=== PATIENT | male | born 1975 | race African-American/Black ===

== ENCOUNTER 2019-04-09 11:58 | Emergency (ER) | payer OTHER ==
[~2019-04-09] VITALS: Ht 175.3 cm; Wt 88.9 kg
[2019-04-09 12:06] VITALS: BP 131/101
--- NOTE | 2019-04-09 12:23 | NUR ---
DR. HUI EVALUATING PT AT BEDSIDE.
--- NOTE | 2019-04-09 12:32 | NUR ---
43/M C/O LT FACIAL NUMBNESS X 1 WK, BLURRY VISION X 1 WK, UNSTEADY GAIT X 1 WK, SLURRED SPEECH X 1 WK. STATES FULL BODY WEAKNESS, NO UNILATERAL WEAKNESS. DENIES N/V/D/FEVER. REPORTS WAS TOLD HE MAY HAVE GLAUCOMA. FULL CLEAR SPEECH. NO ARM DRIFT. HAND AUTOMATIC PATTERN EDGER EQUAL STRONG BILATERALLY. EVEN STEADY GAIT. HX: GLAUCOMA, HTN Addendum: 04/09/19 at 1310 by MILLICENT BLURRY VISION X 1 MONTH (NOT 1 WK)
--- NOTE | 2019-04-09 12:41 | NUR ---
URINE SAMPLE CUP GIVEN TO PT; EXPLAINED THE PROCESS FOR OBTAINING URINE SAMPLE; PT VERBALIZED UNDERSTANDING.
--- NOTE | 2019-04-09 12:54 | NUR ---
DELIVERY ROOM CLERK AT BEDSIDE.
--- NOTE | 2019-04-09 12:56 | NUR ---
PT TO CT SCAN VIA W/C
[2019-04-09 13:06] LABS: BASOPHILS # (AUTO) 0.1 K/uL (0.00-0.22); BASOPHILS % (AUTO) 1.3 % (0.0-2.0); EOSINOPHILS # (AUTO) 0.1 K/uL (0-0.4); EOSINOPHILS % (AUTO) 2.1 % (0.0-4.0); HEMATOCRIT 44.7 % (36-52); HEMOGLOBIN 14.8 g/dL (12.0-18.0); LYMPHOCYTES # (AUTO) 1.9 K/uL (2.0-11.5); LYMPHOCYTES % (AUTO) 36.1 % (20.5-51.1); MEAN CORPUSCULAR HEMOGLOBIN 29 pg (27-31); MEAN CORPUSCULAR HGB CONC 33 g/dL (33-37); MONOCYTES # (AUTO) 0.5 K/uL (0.8-1.0); MONOCYTES % (AUTO) 9.6 % (1.7-9.3); NEUTROPHILS # (AUTO) 2.6 K/uL (1.8-7.7); NEUTROPHILS % (AUTO) 50.9 % (42.2-75.2); PLATELET COUNT (AUTO) 305 K/uL (140-450); RED BLOOD CELL COUNT(AUTO) 5.14 MIL/uL (4.20-6.10); RED CELL DISTRIBUTION WIDTH 13.4 % (11.6-13.7); WHITE BLOOD COUNT (AUTO) 5.2 K/uL (4.8-10.8)
[2019-04-09 13:16] LABS: ALBUMIN 3.8 g/dL (3.4-5.0); ANION GAP 11.8 (8-16); ASPARTATE AMINOTRANSFERASE 11 U/L (15-37); CARBON DIOXIDE 27.2 mmol/L (21-32); CHLORIDE 104 mmol/L (98-107); CREATININE 0.8 mg/dL (0.7-1.3); GFR ARICAN-AMERICAN 135 mL/min (>90); GLUCOSE 105 mg/dL (74-106); SODIUM SERUM 139 mmol/L (136-145); TOTAL BILIRUBIN 0.4 mg/dL (0.0-1.0); UREA NITROGEN, BLOOD 10 mg/dL (7-18)
[2019-04-09 15:23] VITALS: BP 125/102
--- NOTE | 2019-04-09 15:27 | NUR ---
Patient discharged with v/s stable. Written and verbal after care instructions ABOUT WEAKNESS given and explained. Patient verbalized understanding. Ambulatory with steady gait. All questions addressed prior to discharge. Advised to follow up with PMD. PATIENT GIVEN COPY OF RESULTS OF TESTING
[2019-04-09 15:39] LABS: APPEARANCE,URINE CLEAR (CLEAR); BILIRUBIN,URINE NEGATIVE (NEGATIVE); BLOOD, URINE NEGATIVE (NEGATIVE); COLOR,URINE YELLOW (YELLOW); LEUKOCYTE ESTERASE ,URINE NEGATIVE (NEGATIVE); NITRITE, URINE NEGATIVE (NEGATIVE); UGLUCOSE NEGATIVE (NEGATIVE)
== END 2019-04-09 15:23 | disposition home or self-care (01) ==
LOC: MED 11:58
DX: R26.9 Unspecified abnormalities of gait and mobility (principal); I63.9 Cerebral infarction, unspecified
CPT/HCPCS: 36415; 70450; 71045; 80053; 81003; 84484; 85025; 99284; G0482; Q0092

== ENCOUNTER 2019-09-08 18:53 | Emergency (ER) | payer OTHER ==
[~2019-09-08] VITALS: Ht 180.3 cm; Wt 90.7 kg
--- NOTE | 2019-09-08 18:54 | NUR ---
PT BIBA TO ER BED 4
--- NOTE | 2019-09-08 19:15 | NUR ---
44 YEAR OLD MALE BIBA FOR RASH X 3 DAYS. PT HAS VISIBLE REDDENED AREA THAT IS NOT ITCHY BUT SLIGHTLY PAINFUL WHEN TOUCHED ON THE RIGHT FOEARM, THIGH, AND LEG. PATIENT HAS RIGHT SIDED PARALYSIS HE SAYS BECAUSE OF BRAIN CANCER DIAGNOSIS FROM PREVIOUS YEARS. PATIENT AOX4, BREATHING EVEN AND UNLABORED, SKIN WARM AND DRY. BED IN LOWEST POSITION, LOCKED, BED RAIL UPX1. PMH - BRAIN CANCER ALLERGIES - SHELLFISH
[2019-09-08 19:23] VITALS: BP 148/87
--- NOTE | 2019-09-08 19:32 | NUR ---
ELOISE PEGUERO WITH PT
--- NOTE | 2019-09-08 19:46 | NUR ---
Dr. Barreto examining patient.
--- NOTE | 2019-09-08 20:30 | NUR ---
PT ALERT AND AWAKE, BREATHING EVEN AND UNLABORED
[2019-09-08 20:31] LABS: BASOPHILS # (AUTO) 0.1 K/uL (0.00-0.22); BASOPHILS % (AUTO) 1.1 % (0.0-2.0); EOSINOPHILS % (AUTO) 0.1 % (0.0-4.0); HEMATOCRIT 43.2 % (36-52); HEMOGLOBIN 14.7 g/dL (12.0-18.0); LYMPHOCYTES # (AUTO) 1.1 K/uL (2.0-11.5); LYMPHOCYTES % (AUTO) 8.4 % (20.5-51.1); MEAN CORPUSCULAR HEMOGLOBIN 32 pg (27-31); MEAN CORPUSCULAR HGB CONC 34 g/dL (33-37); MONOCYTES # (AUTO) 0.7 K/uL (0.8-1.0); MONOCYTES % (AUTO) 5.4 % (1.7-9.3); NEUTROPHILS # (AUTO) 10.6 K/uL (1.8-7.7); PLATELET COUNT (AUTO) 242 K/uL (140-450); RED BLOOD CELL COUNT(AUTO) 4.65 MIL/uL (4.20-6.10); RED CELL DISTRIBUTION WIDTH 14.8 % (11.6-13.7); WHITE BLOOD COUNT (AUTO) 12.4 K/uL (4.8-10.8)
[2019-09-08 20:45] LABS: ANION GAP 12.6 (8-16); CARBON DIOXIDE 31.2 mmol/L (21-32); POTASSIUM 3.8 mmol/L (3.5-5.1)
[2019-09-08 20:49] LABS: PROTHROMBIN TIME 9.3 secs (10.8-13.4); TOTAL BILIRUBIN 0.3 mg/dL (0.0-1.0)
[2019-09-08 21:40] VITALS: BP 122/90
--- NOTE | 2019-09-08 21:40 | NUR ---
Patient discharged with v/s stable. 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 Patient verbalized understanding. Wheel Chair Assisted to lobby to wait for George friend. All questions addressed prior to discharge. Advised to follow up with PMD.
== END 2019-09-08 21:40 | disposition home or self-care (01) ==
LOC: MED 18:53
DX: D69.2 Other nonthrombocytopenic purpura (principal)
CPT/HCPCS: 36415; 80053; 85025; 85610; 85730; 99283